=== PATIENT | female | born 1955 | race Caucasian/White ===

== ENCOUNTER 2018-10-17 14:17 | Emergency (ER) | payer OTHER ==
[~2018-10-17] VITALS: Ht 167.6 cm; Wt 70.5 kg
[2018-10-17 14:49] LABS: BASO # 0.1 10^3/uL (0.0-0.2); BASO % 0.8 % (0.0-1.0); EOS # 0.1 10^3/uL (0.0-0.50); EOS % 1.8 % (0.0-3.0); HEMOGLOBIN 12.8 g/dl (12.0-15.5); LYMPH # 2.5 10^3/uL (1.5-4.5); LYMPH % 39.6 % (24.0-44.0); MEAN CORPUSCULAR HEMOGLOBIN 26.8 pg (27.0-33.0); MEAN CORPUSCULAR VOLUME 83.9 fl (80.0-96.0); MONO # 0.4 10^3/uL (0.0-0.8); NEUTROPHILS # 3.2 10^3/uL (1.8-7.7); NEUTROPHILS % 51.6 % (36.0-66.0); PLATELET COUNT, AUTOMATED 316 10^3/uL (150-450); RED BLOOD COUNT 4.77 10^6/uL (4.00-5.40); WHITE BLOOD COUNT 6.2 10^3/uL (4.0-10.0)
[2018-10-17 15:15] LABS: BLOOD UREA NITROGEN 14 MG/DL (7-18); CALCIUM LEVEL 9.5 MG/DL (8.8-10.2); CARBON DIOXIDE LEVEL 31 MEQ/L (21-32); CHLORIDE LEVEL 101 MEQ/L (98-107); CPK CREATINE PHOSPHOKINASE 120 U/L (26-192); CREATININE FOR GFR 0.92 MG/DL (0.55-1.30); GLOMERULAR FILTRATION RATE > 60.0 (>45); GLUCOSE, FASTING 137 MG/DL (70-100); MB/CK RELATIVE INDEX 1.08 (< OR =4); POTASSIUM SERUM 3.7 MEQ/L (3.5-5.1); SODIUM LEVEL 138 MEQ/L (136-145); TROPONIN I < 0.02 NG/ML (< 0.10)
--- NOTE | 2018-10-17 16:05 | REP ---
Chest one-view HISTORY: Chest pain Comparison: None The lungs are clear. The heart is normal in size. The pulmonary vasculature is normal in appearance. Impression: No acute disease. Electronically Signed by Gilmar Archer MD 10/17/2018 03:56 P
[2018-10-17] MEDS ORDERED: ASPIRIN 81 MG CHEW TABLET PO ONE (16:45)
--- NOTE | 2018-10-17 20:49 | ECGEPIP ---
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
--- NOTE | 2018-10-17 20:58 | ECGEPIP ---
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
[2018-10-17 21:04] LABS: CK-MB VALUE MASS < 1.0 NG/ML (<3.6); CPK CREATINE PHOSPHOKINASE 95 U/L (26-192); MB/CK RELATIVE INDEX 1.05 (< OR =4); TROPONIN I < 0.02 NG/ML (< 0.10)
== END 2018-10-17 21:47 | disposition home or self-care (01) ==
LOC: M ED 14:17
DX: R07.9 Chest pain, unspecified (principal); R11.0 Nausea; I10 Essential (primary) hypertension; I71.2 Thoracic aortic aneurysm, without rupture